=== PATIENT | female | born 1990 | race Caucasian/White ===

== ENCOUNTER → 2016-10-21 | Outpatient (CLI) | payer OTHER ==
[~2016-10-21] MED LIST: GADOBUTROL 7.5 MMOL/7.5 ML PFS ONE
== END | disposition home or self-care (01) ==
LOC: RAD 12:32
PROVIDERS: ATTEND Nurse Practitioner Family
DX: N91.2 Amenorrhea, unspecified (principal)
CPT/HCPCS: 70553; A9585

== ENCOUNTER → 2017-04-03 | Outpatient (CLI) | payer OTHER ==
[2017-04-03 15:24] LABS: HEMATOCRIT 42.2 % (34.6-47.8); HEMOGLOBIN 14.2 g/dL (11.7-16.4); WHITE BLOOD COUNT 5.1 x10^3/uL (3.4-10)
[2017-04-03 15:37] LABS: BLOOD UREA NITROGEN 22 mg/dL (7-18)
[2017-04-03 15:47] LABS: ASPARTATE AMINO TRANSFERASE 21 U/L (15-37)
== END | disposition home or self-care (01) ==
LOC: LAB 14:55
PROVIDERS: ATTEND Nurse Practitioner Family
DX: Z00.01 Encounter for general adult medical examination with abnormal findings (principal); D72.819 Decreased white blood cell count, unspecified
CPT/HCPCS: 36415; 80053; 85025

== ENCOUNTER → 2017-09-10 | Outpatient (CLI) | payer OTHER ==
[2017-09-10 17:23] LABS: BASOPHILS # (AUTO) 0.01 x10^3/uL (0-0.1); BASOPHILS % (AUTO) 0 % (0-1); EOSINOPHILS # (AUTO) 0.07 x10^3/uL (0-0.4); EOSINOPHILS % (AUTO) 2 % (1-7); LYMPHOCYTES # (AUTO) 1.27 x10^3/uL (1-3.4); LYMPHOCYTES % (AUTO) 27 % (22-44); MD NO; MEAN CORPUSCULAR HEMOGLOBIN 30.7 pg (27.0-34.8); MEAN CORPUSCULAR HGB CONC 34.1 g/dL (32.4-35.8); MEAN CORPUSCULAR VOLUME 89.9 fL (80-100); MEAN PLATELET VOLUME 7.9 fL (7.4-10.4); MONOCYTES # (AUTO) 0.44 x10^3/uL (0.2-0.8); MONOCYTES % (AUTO) 9 % (2-9); NEUTROPHILS # (AUTO) 2.87 x10^3/uL (1.8-6.8); NEUTROPHILS % (AUTO) 62 % (42-75); PLATELET COUNT 199 x10^3/uL (130-400); RED CELL DISTRIBUTION WIDTH 12.6 % (9.6-15.2)
[2017-09-10 17:26] LABS: ALANINE AMINOTRANSFERASE 31 U/L (12-78); ANION GAP 5 mmol/L (5-15); CALCIUM 8.4 mg/dL (8.5-10.1); CHLORIDE 103 mmol/L (98-107)
[2017-09-10 17:37] LABS: ALKALINE PHOSPHATASE 62 U/L (45-117); BILIRUBIN,TOTAL 0.7 mg/dL (0.2-1.0); CREATININE 0.81 mg/dL (0.55-1.02); THYROID STIMULATING HORMONE 0.825 mIU/L (0.358-3.740)
== END | disposition home or self-care (01) ==
LOC: LAB 16:55
PROVIDERS: ATTEND Nurse Practitioner Family
DX: Z00.00 Encounter for general adult medical examination without abnormal findings (principal); B37.0 Candidal stomatitis; D72.819 Decreased white blood cell count, unspecified; R22.43 Localized swelling, mass and lump, lower limb, bilateral
CPT/HCPCS: 36415; 80053; 82306; 84443; 85025

== ENCOUNTER → 2018-02-04 | Outpatient (CLI) | payer OTHER ==
[2018-02-04 16:56] LABS: BASOPHILS % (AUTO) 0 % (0-1); EOSINOPHILS % (AUTO) 1 % (1-7); LYMPHOCYTES # (AUTO) 1.07 x10^3/uL (1-3.4); LYMPHOCYTES % (AUTO) 17 % (22-44); MEAN CORPUSCULAR HGB CONC 34.5 g/dL (32.4-35.8); MONOCYTES % (AUTO) 8 % (2-9); NEUTROPHILS # (AUTO) 4.74 x10^3/uL (1.8-6.8); NEUTROPHILS % (AUTO) 75 % (42-75); PLATELET COUNT 201 x10^3/uL (130-400); RED BLOOD COUNT 4.26 x10^6/uL (3.82-5.3); RED CELL DISTRIBUTION WIDTH 12.5 % (9.6-15.2)
[2018-02-04 16:57] LABS: BASOPHILS # (AUTO) 0.02 x10^3/uL (0-0.1); EOSINOPHILS # (AUTO) 0.04 x10^3/uL (0-0.4); MD NO; MONOCYTES # (AUTO) 0.47 x10^3/uL (0.2-0.8)
== END | disposition home or self-care (01) ==
LOC: LAB 16:33
PROVIDERS: ATTEND Nurse Practitioner Family
DX: D72.829 Elevated white blood cell count, unspecified (principal); N91.2 Amenorrhea, unspecified; R53.83 Other fatigue; R11.0 Nausea
CPT/HCPCS: 36415; 84702; 85025

== ENCOUNTER → 2018-02-18 | Outpatient (CLI) | payer OTHER ==
[2018-02-18 16:59] LABS: BASOPHILS # (AUTO) 0.03 x10^3/uL (0-0.1); BASOPHILS % (AUTO) 1 % (0-1); EOSINOPHILS # (AUTO) 0.03 x10^3/uL (0-0.4); EOSINOPHILS % (AUTO) 1 % (1-7); LYMPHOCYTES # (AUTO) 1.28 x10^3/uL (1-3.4); LYMPHOCYTES % (AUTO) 22 % (22-44); MD NO; MEAN CORPUSCULAR HEMOGLOBIN 30.1 pg (27.0-34.8); MEAN CORPUSCULAR HGB CONC 33.3 g/dL (32.4-35.8); MEAN CORPUSCULAR VOLUME 90.4 fL (80-100); MEAN PLATELET VOLUME 7.9 fL (7.4-10.4); MONOCYTES # (AUTO) 0.44 x10^3/uL (0.2-0.8); MONOCYTES % (AUTO) 8 % (2-9); NEUTROPHILS # (AUTO) 4.03 x10^3/uL (1.8-6.8); NEUTROPHILS % (AUTO) 69 % (42-75); PLATELET COUNT 200 x10^3/uL (130-400); RED BLOOD COUNT 4.31 x10^6/uL (3.82-5.3); RED CELL DISTRIBUTION WIDTH 12.4 % (9.6-15.2)
== END | disposition home or self-care (01) ==
LOC: LAB 16:26
PROVIDERS: ATTEND Obstetrics & Gynecology
DX: Z34.01 Encounter for supervision of normal first pregnancy, first trimester (principal)
CPT/HCPCS: 36415; 85025; 86592; 86762; 86787; 86850; 86900; 87340; 87806; G0475

== ENCOUNTER 2018-05-25 13:46 | Outpatient (CLI) | payer OTHER ==
[~2018-05-25] VITALS: Ht 160 cm; Wt 59.1 kg
[2018-05-25 14:45] VITALS: BP 98/50
[2018-05-25] MEDS ORDERED: PREN1TAB10 PO (14:52)
== END 2018-05-25 15:09 | disposition home or self-care (01) ==
LOC: LDOP 13:46
PROVIDERS: ATTEND Obstetrics & Gynecology
DX: O36.8120 Decreased fetal movements, second trimester, not applicable or unspecified (principal); Z3A.22 22 weeks gestation of pregnancy
CPT/HCPCS: 59025; 99201; G0463

== ENCOUNTER 2018-07-21 10:36 | Outpatient (CLI) | payer OTHER ==
[~2018-07-21] VITALS: Ht 160 cm; Wt 61.8 kg
[~2018-07-21 10:36] MED LIST changes: -GADOBUTROL 7.5 MMOL/7.5 ML PFS ONE; +PREN1TAB10 PO
[2018-07-21 10:46] VITALS: BP 93/58
== END 2018-07-21 12:00 | disposition home or self-care (01) ==
LOC: LDOP 10:36
PROVIDERS: ATTEND Obstetrics & Gynecology
DX: O26.893 Other specified pregnancy related conditions, third trimester (principal); Z3A.30 30 weeks gestation of pregnancy; W19.XXXA Unspecified fall, initial encounter; Y93.9 Activity, unspecified; Y92.9 Unspecified place or not applicable; Y99.9 Unspecified external cause status
CPT/HCPCS: 59025; 99211; G0463

== ENCOUNTER 2018-09-01 17:50 | Outpatient (CLI) | payer OTHER ==
[~2018-09-01] VITALS: Ht 160 cm; Wt 65.0 kg
[2018-09-01 18:16] VITALS: BP 94/55
== END 2018-09-01 19:22 | disposition home or self-care (01) ==
LOC: LDOP 17:50
PROVIDERS: ATTEND Obstetrics & Gynecology
DX: O26.893 Other specified pregnancy related conditions, third trimester (principal); S39.81XA Other specified injuries of abdomen, initial encounter; X58.XXXA Exposure to other specified factors, initial encounter; Y93.89 Activity, other specified; Y92.89 Other specified places as the place of occurrence of the external cause; Y99.8 Other external cause status; Z3A.36 36 weeks gestation of pregnancy
CPT/HCPCS: 59025; 99211; G0463

== ENCOUNTER 2018-09-21 13:43 | Outpatient (CLI) | payer OTHER ==
[~2018-09-21] VITALS: Ht 160 cm; Wt 67.3 kg
== END 2018-09-21 14:49 | disposition home or self-care (01) ==
LOC: LDOP 13:43
PROVIDERS: ATTEND Obstetrics & Gynecology
DX: O42.92 Full-term premature rupture of membranes, unspecified as to length of time between rupture and onset of labor (principal); Z3A.39 39 weeks gestation of pregnancy
CPT/HCPCS: 59025; 84112; 99211; G0463

== ENCOUNTER 2018-09-24 10:52 | Outpatient (CLI) | payer OTHER ==
[~2018-09-24] VITALS: Ht 160 cm; Wt 59.1 kg
== END 2018-09-24 12:15 | disposition home or self-care (01) ==
LOC: LDOP 10:52
PROVIDERS: ATTEND Obstetrics & Gynecology
DX: O42.92 Full-term premature rupture of membranes, unspecified as to length of time between rupture and onset of labor (principal); Z88.0 Allergy status to penicillin; Z3A.39 39 weeks gestation of pregnancy
CPT/HCPCS: 59025; 89060; 99211; G0463; Q0114

== ENCOUNTER 2018-09-27 02:39 | Outpatient (CLI) | payer OTHER ==
[~2018-09-27] VITALS: Ht 160 cm; Wt 66.5 kg
[2018-09-27 03:02] VITALS: BP 99/58
[2018-09-27 03:06] VITALS: BP 99/58
[2018-09-27] MEDS ORDERED: MEPERIDINE/PF 50 MG/ML ONE (03:57)
[2018-09-27] MEDS ORDERED: PROMETHAZINE 25 MG/ML, 1ML IM ONE (04:00)
[2018-09-27] MEDS ORDERED: MEPERIDINE/PF 50 MG/ML IM PRN (04:00)
== END 2018-09-27 05:15 | disposition home or self-care (01) ==
LOC: LDOP 02:39
PROVIDERS: ATTEND Obstetrics & Gynecology
DX: O62.9 Abnormality of forces of labor, unspecified (principal); Z88.0 Allergy status to penicillin; Z3A.40 40 weeks gestation of pregnancy
CPT/HCPCS: 96372; J2175; J2550; 59025; 99211; G0463

== ENCOUNTER 2018-09-27 07:10 | Inpatient (IN) | payer OTHER ==
[~2018-09-27] VITALS: Ht 160 cm; Wt 65.9 kg
[2018-09-27] MEDS ORDERED: D5%-LACTATED RINGERS 1,000 ML IV SCH (07:57)
[2018-09-27] MEDS ORDERED: LACTATED RINGERS 1,000 ML IV SCH (07:57)
[2018-09-27] MEDS ORDERED: OXYTOCIN 30U/ 0.9% NaCL 500ML 500 ML IV ONE (07:57)
[2018-09-27] MEDS ORDERED: FENTANYL PF 100 MCG/2ML IVPush PRN (08:00)
[2018-09-27] MEDS ORDERED: FENTANYL PF 100 MCG/2ML IV PRN (08:00)
[2018-09-27] MEDS ORDERED: FENTANYL/BUPIV./NS/PF 250 ML EPIDCONT SCH (08:05)
[2018-09-27] MEDS ORDERED: FENTANYL PF 100 MCG/2ML ONE (08:07)
[2018-09-27] MEDS ORDERED: ONDANSETRON 2MG/ML, 2ML ONE ×2 (08:07→13:22)
[2018-09-27] MEDS: ONDANSETRON 2MG/ML, 2ML IVPush PRN ×2 (08:11→13:25)
[2018-09-27] MEDS: LACTATED RINGERS 1,000 ML IV SCH ×2 (08:12→14:20)
[2018-09-27] MEDS ORDERED: LACTATED RINGERS 1,000 ML IVBOLUS PRN (08:30)
[2018-09-27] MEDS ORDERED: EPHEDRINE 50 MG/ML, 1ML IVPush PRN (08:30)
[2018-09-27] MEDS ORDERED: FENTANYL PF 500 MCG, BUPIVACAINE/PF 0.5%, 30ML 62.5 ML in SODIUM CHLORIDE 0.9% 177.5 ML EPIDCONT SCH (08:30)
[2018-09-27 08:53] LABS: BASOPHILS # (AUTO) 0.01 x10^3/uL (0-0.1); BASOPHILS % (AUTO) 0 % (0-1); EOSINOPHILS % (AUTO) 0 % (1-7); LYMPHOCYTES # (AUTO) 0.87 x10^3/uL (1-3.4); LYMPHOCYTES % (AUTO) 7 % (22-44); MD NO; MEAN CORPUSCULAR HEMOGLOBIN 31.2 pg (27.0-34.8); MEAN CORPUSCULAR HGB CONC 32.5 g/dL (32.4-35.8); MEAN CORPUSCULAR VOLUME 96.2 fL (80-100); MEAN PLATELET VOLUME 8.6 fL (7.4-10.4); MONOCYTES # (AUTO) 0.57 x10^3/uL (0.2-0.8); MONOCYTES % (AUTO) 5 % (2-9); NEUTROPHILS # (AUTO) 10.72 x10^3/uL (1.8-6.8); NEUTROPHILS % (AUTO) 88 % (42-75); PLATELET COUNT 167 x10^3/uL (130-400); RED BLOOD COUNT 4.19 x10^6/uL (3.82-5.3)
[2018-09-27] MEDS ORDERED: BUPIVACAINE 0.25% ONE (09:28)
[2018-09-27] MEDS ORDERED: LIDOCAINE/PF 1.5%-EPI 1:200K, 30ML ONE (09:29)
[2018-09-27] MEDS ORDERED: MISOPROSTOL 200 MCG TABLET ONE (09:43)
[2018-09-27] MEDS ORDERED: OXYTOCIN 30U/ 0.9% NaCL 500ML 500 ML ONE (09:43)
[2018-09-27] MEDS ORDERED: LIDOCAINE 1%, 20ML ONE (09:44)
[2018-09-27] MEDS ORDERED: NEWBORN KIT ONE (10:09)
[2018-09-27] MEDS: OXYTOCIN 30U/ 0.9% NaCL 500ML 500 ML IV SCH (14:45)
[2018-09-27] MEDS ORDERED: ACETAMINOPHEN 325 MG TABLET PO PRN (15:00)
[2018-09-27] MEDS ORDERED: ONDANSETRON 2MG/ML, 2ML IV PRN (15:00)
[2018-09-27] MEDS ORDERED: OXYcodone/APAP 5/325MG TABLET PO PRN (15:00)
[2018-09-27] MEDS ORDERED: RHOGAM FROM BLOOD BANK 1 NOTE EA IM/IV ONE (15:00)
[2018-09-27] MEDS ORDERED: HYDROcodone/APAP 5/325 TABLET PO PRN (15:00)
[2018-09-27] MEDS ORDERED: MISOPROSTOL 200 MCG TABLET PR PRN (15:00)
[2018-09-27] MEDS ORDERED: BISACODYL 10 MG SUPP PR PRN (15:00)
[2018-09-27 17:00] VITALS: BP 101/67
[2018-09-27 19:35] VITALS: BP 98/61
[2018-09-27] MEDS: IBUPROFEN 800 MG TABLET PO PRN (20:46)
[2018-09-27 23:05] LABS: BASOPHILS # (AUTO) 0.04 x10^3/uL (0-0.1); BASOPHILS % (AUTO) 0 % (0-1); EOSINOPHILS # (AUTO) 0.01 x10^3/uL (0-0.4); EOSINOPHILS % (AUTO) 0 % (1-7); LYMPHOCYTES # (AUTO) 1.27 x10^3/uL (1-3.4); LYMPHOCYTES % (AUTO) 11 % (22-44); MD NO; MEAN CORPUSCULAR HEMOGLOBIN 32.8 pg (27.0-34.8); MEAN CORPUSCULAR HGB CONC 33.9 g/dL (32.4-35.8); MEAN CORPUSCULAR VOLUME 96.8 fL (80-100); MEAN PLATELET VOLUME 8.8 fL (7.4-10.4); MONOCYTES # (AUTO) 0.89 x10^3/uL (0.2-0.8); MONOCYTES % (AUTO) 7 % (2-9); NEUTROPHILS % (AUTO) 82 % (42-75); PLATELET COUNT 181 x10^3/uL (130-400); RED BLOOD COUNT 3.73 x10^6/uL (3.82-5.3); RED CELL DISTRIBUTION WIDTH 13.6 % (9.6-15.2)
[2018-09-28] MEDS: LACTATED RINGERS 1,000 ML IV SCH ×3 (00:05→16:05)
[2018-09-28 00:13] VITALS: BP 99/60
[2018-09-28] MEDS: OXYTOCIN 30U/ 0.9% NaCL 500ML 500 ML IV SCH ×3 (00:34→16:08)
[2018-09-28 03:40] VITALS: BP 94/61
[2018-09-28] MEDS: IBUPROFEN 800 MG TABLET PO PRN ×3 (05:57→22:16)
[2018-09-28] MEDS: DOCUSATE 100 MG CAPSULE PO PRN (07:47)
[2018-09-28] MEDS: PRENATAL VIT/IRON/FA 1 EACH TABLET PO SCH (07:47)
[2018-09-28 11:30] VITALS: BP 98/59
[2018-09-28 20:00] VITALS: BP 95/91
[2018-09-29] MEDS: LACTATED RINGERS 1,000 ML IV SCH (00:05)
[2018-09-29] MEDS: OXYTOCIN 30U/ 0.9% NaCL 500ML 500 ML IV SCH (06:45)
[2018-09-29] MEDS: DOCUSATE 100 MG CAPSULE PO PRN (11:19)
[2018-09-29] MEDS: PRENATAL VIT/IRON/FA 1 EACH TABLET PO SCH (11:19)
[2018-09-29] MEDS: IBUPROFEN 800 MG TABLET PO PRN (11:19)
[2018-09-29] MEDS ORDERED: IBUP-1222 PO (12:28)
== END 2018-09-29 18:15 | disposition home or self-care (01) | DRG 806 ==
LOC: LDOP 07:10 → LDIP 08:01 → 2NW 16:51
PROVIDERS: ADMIT Obstetrics & Gynecology; ATTEND Obstetrics & Gynecology
PROC: 10E0XZZ Delivery of Products of Conception, External Approach (ICD-10-PCS; principal; 2018-09-27)
PROC: 0UQGXZZ Repair Vagina, External Approach (ICD-10-PCS; 2018-09-27)
PROC: 10907ZC Drainage of Amniotic Fluid, Therapeutic from Products of Conception, Via Natural or Artificial Opening (ICD-10-PCS; 2018-09-27)
PROC: 3E0R3BZ Introduction of Anesthetic Agent into Spinal Canal, Percutaneous Approach (ICD-10-PCS; 2018-09-27)
PROC: 00HU33Z Insertion of Infusion Device into Spinal Canal, Percutaneous Approach (ICD-10-PCS; 2018-09-27)
DX: O75.89 Other specified complications of labor and delivery (principal); O99.354 Diseases of the nervous system complicating childbirth; Z37.0 Single live birth; Z3A.40 40 weeks gestation of pregnancy; G43.909 Migraine, unspecified, not intractable, without status migrainosus; O71.4 Obstetric high vaginal laceration alone; Z88.0 Allergy status to penicillin
CPT/HCPCS: 36415; S0020; 85025; 86850; 86900; G0378; J2405; J3010; J7050; J7120

== ENCOUNTER 2019-12-14 15:49 | Outpatient (CLI) | payer OTHER ==
[~2019-12-14 15:49] MED LIST changes: +IBUP-1222 PO
== END 2019-12-14 23:59 | disposition home or self-care (01) ==
LOC: LAB 15:49
PROVIDERS: ATTEND Nurse Practitioner Family
DX: Z20.828 Contact with and (suspected) exposure to other viral communicable diseases (principal)
CPT/HCPCS: 87536

== ENCOUNTER 2020-12-17 07:50 | Emergency (ER) | payer OTHER ==
[~2020-12-17] VITALS: Ht 160 cm; Wt 64.9 kg
--- NOTE | 2020-12-17 08:29 | NUR ---
PT TO CT
[2020-12-17 08:40] LABS: BASOPHILS % (AUTO) 1 % (0-1); EOSINOPHILS % (AUTO) 4 % (1-7); LYMPHOCYTES % (AUTO) 22 % (22-44); MEAN CORPUSCULAR HEMOGLOBIN 29.8 pg (27.0-34.8); MEAN CORPUSCULAR HGB CONC 34.4 g/dL (32.4-35.8); MEAN PLATELET VOLUME 8.2 fL (7.4-10.4); MONOCYTES % (AUTO) 10 % (2-9); NEUTROPHILS % (AUTO) 64 % (42-75); PLATELET COUNT 185 x10^3/uL (130-400); RED BLOOD COUNT 4.91 x10^6/uL (3.82-5.3); RED CELL DISTRIBUTION WIDTH 12.8 % (9.6-15.2)
[2020-12-17 08:41] LABS: ALBUMIN 3.4 g/dL (3.4-5.0); ANION GAP 5 mmol/L (5-15); CALCIUM 8.2 mg/dL (8.5-10.1); CHLORIDE 108 mmol/L (98-107); CREATININE 0.77 mg/dL (0.55-1.02)
--- NOTE | 2020-12-17 08:54 | NUR ---
BACK FROM CT
--- NOTE | 2020-12-17 09:00 | NUR ---
4 WEEK PREG. BLEEDING TODAY. +PREG TEST 6 DAYS AGO. PT CALM IN BED, NAD. WENT OVER PLAN OF CARE FROM ORDER LIST. AGREES TO CARE.
[2020-12-17 09:58] VITALS: BP 110/74
== END 2020-12-17 10:00 | disposition home or self-care (01) ==
LOC: ED 09:40
DX: O03.9 Complete or unspecified spontaneous abortion without complication (principal)
CPT/HCPCS: 36415; 76801; 80048; 82040; 84702; 85025; 99284